=== PATIENT | male | born 1960 | race Two or more races ===

== ENCOUNTER 2023-03-04 13:36 | Emergency (ER) | payer SELFPAY ==
[2023-03-04 13:55] VITALS: BP 197/91
[2023-03-04] MEDS ORDERED: LIDOCAINE 1%-EPI 1:100000 20 ML MDV SUBQ STA (14:35)
--- NOTE | 2023-03-04 14:36 | ED Physician Documentation ---
PD HPI WOUND RECHECK - Stated complaint Stated Complaint: RT CHEEK PX - Chief complaint Chief Complaint: Wound - Histroy obtained from History obtained from: Patient (5-day history of an abscess on the right cheek that started as a pimple. No fevers.) PD PAST MEDICAL HISTORY - Present Medications Home Medications: Ambulatory Orders Medication Instructions Recorded Confirmed cephALEXin [Keflex] 500 mg PO Q6H #28 cap 03/04/23 PD ED PE NORMAL - Vitals Vital signs reviewed: Yes - General General: Alert and oriented X 3, No acute distress - HEENT HEENT: Other (2 cm pointed abscess on the right cheek) - Neuro Neuro: Alert and oriented X 3, Normal speech Results - Vitals Vitals: Vital Signs - 24 hr 03/04/23 13:50 Temperature 37.2 C Heart Rate 55 L Respiratory 15 Rate Blood Pressure 197/91 H O2 Saturation 99 Oxygen O2 Source Room air Procedures - Abscess I&D (location) R cheek Preparation: Lidocaine 1%, With epi Incision: Incised with scalpel, Purulent drainage (and sebum), Loculations broken, Culture obtained Other: Pt tolerated well, Dressing applied, Antibiotic prescribed Departure - Departure Disposition: 01 Home, Self Care Clinical Impression: Infected sebaceous cyst Condition: Good Record reviewed to determine appropriate education?: Yes Instructions: ED Cyst Sebaceous Infec IandD Prescriptions: cephALEXin [Keflex] 500 mg PO Q6H #28 cap Comments: We are performing a wound culture, the results should be done in 48-72 hours. If antibiotic change is necessary we will call you. Return if worse in the meantime, especially if you develop increased pain, fevers, cannot keep down the medication. Otherwise return here in approximately 2-3 days for wound check. Estamos realizando un cultivo de herida, los resultados deben estar en 48-72 horas. Si es necesario el cambio de antibitico le llamaremos. Regrese si e mpeora mientras tanto, especialmente si desarrolla un aumento del dolor, fiebre, no puede retener el medicamento. De lo contrario, regrese aqu en aproximadamente 2-3 guthrie para revisar la herida.
== END 2023-03-04 15:10 | disposition home or self-care (01) ==
LOC: ED 13:36
DX: L72.3 Sebaceous cyst (principal)
CPT/HCPCS: 10060